=== PATIENT | female | born 1980 | race Caucasian/White ===

== ENCOUNTER 2017-01-06 07:49 | Emergency (ER) | payer OTHER ==
[~2017-01-06] VITALS: Ht 167.6 cm; Wt 86.4 kg
[2017-01-06 08:00] VITALS: BP 122/76
--- NOTE | 2017-01-06 08:06 | NUR ---
Patient ambulated to bed 2 at this time.
--- NOTE | 2017-01-06 08:08 | NUR ---
PATIENT PRESENTS TO ED WITH FALL THIS MORNING. PT STATES SHE FELL AND SLIPPED IN THE SHOWER, ECCHYMOSIS NOTED TO RIGHT SIDE NEAR RIBS. DENIES N/V/D; SKIN IS PINK/WARM/DRY; AAOX4 WITH EVEN AND STEADY GAIT; LUNGS CLEAR BL; HR EVEN AND REGULAR; PT DENIES ANY FEVER, CP, SOB, OR COUGH AT THIS TIME; PATIENT STATES PAIN OF 9/10 AT THIS TIME; VSS; PATIENT POSITIONED FOR COMFORT; HOB ELEVATED; BEDRAILS UP X2; BED DOWN. ER MD MADE AWARE OF PT STATUS.
--- NOTE | 2017-01-06 08:18 | NUR ---
DR. THOMPSON EVALUATING PT AT BEDSIDE.
[2017-01-06] MEDS: ACETAMINOPHEN 325 MG TAB PO ONE (08:29)
--- NOTE | 2017-01-06 08:36 | NUR ---
PT TO RADIOLOGY VIA WHEELCHAIR. TECH PRESENT.
[2017-01-06 09:31] VITALS: BP 123/81
== END 2017-01-06 09:31 | disposition home or self-care (01) ==
LOC: MED 07:49
DX: S20.211A Contusion of right front wall of thorax, initial encounter (principal); K21.9 Gastro-esophageal reflux disease without esophagitis; Z98.51 Tubal ligation status; W18.2XXA Fall in (into) shower or empty bathtub, initial encounter; Y93.89 Activity, other specified; Y92.89 Other specified places as the place of occurrence of the external cause; Y99.8 Other external cause status
CPT/HCPCS: 71101; 99284

== ENCOUNTER 2017-08-19 13:39 | Emergency (ER) | payer OTHER ==
[~2017-08-19] VITALS: Ht 165.1 cm; Wt 93.4 kg
[2017-08-19 13:51] VITALS: BP 119/80
--- NOTE | 2017-08-19 14:00 | NUR ---
37/F BIB c/o left elbow pain radiating to wrist x 3 days---denies injury/trauma, no discoloration noted, +2 brachial/radial pulses <3 sec cap refill, full rom. hx--denies rx---none. surgery tubal ligationDENIES N/V/D; SKIN IS PINK/WARM/DRY; AAOX4 WITH EVEN AND STEADY GAIT; LUNGS CLEAR BL; HR EVEN AND REGULAR; PT DENIES ANY FEVER, CP, SOB, OR COUGH AT THIS TIME; PATIENT STATES PAIN OF `10/10 AT THIS TIME. PATIENT POSITIONED FOR COMFORT; HOB ELEVATED; BEDRAILS UP X2; BED DOWN. ER MD MADE AWARE OF PT STATUS.
[2017-08-19] MEDS ORDERED: LIDOCAINE MPF 1% - **ER/OR** 10 MG/ML VIAL INJ ONE (14:50)
[2017-08-19 16:11] VITALS: BP 114/77
--- NOTE | 2017-08-19 16:11 | NUR ---
Patient discharged with v/s stable. Written and verbal after care instructions given and explained. Patient verbalized understanding. with steady gait. All questions addressed prior to discharge. Advised to follow up with PMD.
== END 2017-08-19 16:11 | disposition home or self-care (01) ==
LOC: MED 13:39
DX: M62.830 Muscle spasm of back (principal); K21.9 Gastro-esophageal reflux disease without esophagitis
CPT/HCPCS: 20552; 99284; J2001

== ENCOUNTER 2017-08-20 09:42 | Emergency (ER) | payer OTHER ==
[~2017-08-20] VITALS: Ht 167.6 cm; Wt 93.0 kg
[2017-08-20 09:48] VITALS: BP 136/100
--- NOTE | 2017-08-20 09:53 | NUR ---
AMBULATES TO BED3
--- NOTE | 2017-08-20 10:02 | NUR ---
37 YO PT C/O SHARP LEFT ARM PAIN RADIATING FROM ELBOW TO HAND 10/10 X 4 DAYS. PT WITH H/O SLIPPED DISK IN NECK AND BACK, STATES SHE THINKS IT MAY BE R/T THAT. DENIES TRUAMA. PT WAS SEEN HERE YESTERDAY FOR SAME THING AND DC'D WITH DX: MUSCLE CRAMPS. PT AAOX4. GCS 15. CMS INTACT. RR EVEN AND UNLABORED. LUNGS BILATERALLY CLEAR. ABD SOFT, NON-TENDER. ER MD RICHEY NOTIFIED. PT NEEDS MET. SAFETY PRECAUTIONS IN PLACE. WILL CONTINUE TO MONITOR.
[2017-08-20] MEDS ORDERED: traMADol 50 MG TAB PO ONE (10:40)
--- NOTE | 2017-08-20 11:00 | NUR ---
PT RESTING IN [facility] AT THIS TIME. VSS. RR EVEN AND UNLABORED. LUNGS CLEAR. SAFETY PRECAUTIONS IN PLACE. WILL CONTINUE TO MONTIOR. PT MEDICATED ABOUT 5 MINUTES AGO, PT UP FOR D/C AFTER OBSERVATION R/T TO [employer].
[2017-08-20 11:23] VITALS: BP 130/98
--- NOTE | 2017-08-20 11:24 | NUR ---
Patient discharged with v/s stable. Written and verbal after care instructions given and explained. Patient alert, oriented and verbalized understanding of instructions. Ambulatory with steady gait. All questions addressed prior to discharge. ID band removed. Patient advised to follow up with PMD. Rx of MEDROL DOSEPAK, TRAMADOL given. Patient educated on indication of medication including possible reaction and side effects. Opportunity to ask questions provided and answered.
== END 2017-08-20 11:24 | disposition home or self-care (01) ==
LOC: MED 09:42
DX: M54.12 Radiculopathy, cervical region (principal); K21.9 Gastro-esophageal reflux disease without esophagitis
CPT/HCPCS: 99283

== ENCOUNTER 2019-03-17 07:46 | Emergency (ER) | payer OTHER ==
[~2019-03-17] VITALS: Ht 167.6 cm; Wt 95.3 kg
[2019-03-17 07:49] VITALS: BP 124/74
--- NOTE | 2019-03-17 07:54 | NUR ---
PT AMB TO BED 8 WITH STEADY GAIT
--- NOTE | 2019-03-17 08:11 | NUR ---
Xray ordered. Patient states that has tubal ligation Urine HCG done and is negative
[2019-03-17 08:41] VITALS: BP 139/85
--- NOTE | 2019-03-17 08:46 | NUR ---
Stable VSS Minimal pain MD has reviewed xrays and Dc'd home To exit
== END 2019-03-17 08:46 | disposition home or self-care (01) ==
LOC: MED 07:46
DX: S93.601A Unspecified sprain of right foot, initial encounter (principal); K21.9 Gastro-esophageal reflux disease without esophagitis; Z98.890 Other specified postprocedural states; W22.8XXA Striking against or struck by other objects, initial encounter; Y93.89 Activity, other specified; Y92.89 Other specified places as the place of occurrence of the external cause; Y99.8 Other external cause status
CPT/HCPCS: 73630; 99283; Q0092

== ENCOUNTER 2020-12-06 08:04 | Emergency (ER) | payer OTHER ==
[~2020-12-06] VITALS: Ht 170.2 cm; Wt 108.2 kg
[2020-12-06 08:10] VITALS: BP 116/88
--- NOTE | 2020-12-06 08:17 | NUR ---
PT AMB TO ER BED 3
--- NOTE | 2020-12-06 08:43 | NUR ---
40 Y/O F BIB SELF FROM HOME, PATIENT PRESENTS TO ED WITH NECK PAIN THAT RADIATES TO SHOULDERS FOR 3 DAYS. PT STATES SHE SLEPT ON HER NECK WRONG 3 DAYS AGO AND HAS BEEN HAVING PAIN SINCE. DENIES VOMITING AND DIARHEA, BUT C/O NAUSEA FROM PAIN BEING SO INTENSE; SKIN IS PINK/WARM/DRY; AAOX4 WITH EVEN AND STEADY GAIT, PT HAS FULL ROM OF NECK AND UPPER EXTREMITIES AT THIS TIME; LUNGS CLEAR BL; HR EVEN AND REGULAR; PT DENIES ANY FEVER, CP, SOB, OR COUGH AT THIS TIME; PATIENT STATES PAIN OF 7/10 AT THIS TIME; VSS; PATIENT POSITIONED FOR COMFORT; HOB ELEVATED; BEDRAILS UP X2; BED DOWN. ER MD MADE AWARE OF PT STATUS. PMH: GASTRITIS MED: IBUPROFEN 800MG (NO RELIEF) NKA
[2020-12-06] MEDS ORDERED: KETOROLAC 30 MG/ML VIAL IM ONE (08:50)
[2020-12-06] MEDS ORDERED: ACET-8386 PO (09:51)
[2020-12-06] MEDS ORDERED: DIAZ5TAB7 PO (09:51)
--- NOTE | 2020-12-06 10:15 | NUR ---
Patient discharged with v/s stable. Written and verbal after care instructions given and explained. Patient alert, oriented and verbalized understanding of instructions. Ambulatory with steady gait. All questions addressed prior to discharge. ID band removed. Patient advised to follow up with PMD. Rx of HYDROCODONE, DIAZEPAM given. Patient educated on indication of medication including possible reaction and side effects. Opportunity to ask questions provided and answered.
[2020-12-06 10:40] VITALS: BP 116/88
== END 2020-12-06 10:15 | disposition home or self-care (01) ==
LOC: MED 08:04
DX: M54.2 Cervicalgia (principal); M62.838 Other muscle spasm; K21.9 Gastro-esophageal reflux disease without esophagitis; Z79.899 Other long term (current) drug therapy
CPT/HCPCS: 96372; 99283; J1885

== ENCOUNTER 2022-12-18 07:35 | Emergency (ER) | payer OTHER ==
[~2022-12-18] VITALS: Ht 167.6 cm; Wt 99.5 kg
[~2022-12-18 07:35] MED LIST: ACET-8905 PO; DIAZ5TAB8 PO
[2022-12-18 07:39] VITALS: BP 127/79; PULSE 81; RESP 20; TEMP 97.8; O2SAT 97
[2022-12-18 07:58] VITALS: BP 127/79; PULSE 81; RESP 20; TEMP 97.8; O2SAT 97
[2022-12-18] MEDS ORDERED: KETOROLAC 60 MG/2 ML VIAL IM ONE (08:05)
[2022-12-18 08:36] LABS: APPEARANCE,URINE CLEAR (CLEAR); BILIRUBIN,URINE NEGATIVE (NEGATIVE); BLOOD, URINE NEGATIVE (NEGATIVE); COLOR,URINE YELLOW (YELLOW); LEUKOCYTE ESTERASE ,URINE NEGATIVE (NEGATIVE); NITRITE, URINE NEGATIVE (NEGATIVE); PROTEIN,URINE NEGATIVE (NEGATIVE); UGLUCOSE 3+ (NEGATIVE); UROBILINOGEN,URINE 0.2 EU/dL (0.2 - 1)
[2022-12-18] MEDS ORDERED: IBUP-2213 PO (08:44)
[2022-12-18] MEDS ORDERED: FLUC150T PO (08:44)
[2022-12-18] MEDS ORDERED: CIPR500T4 PO (08:44)
== END 2022-12-18 09:02 | disposition home or self-care (01) ==
LOC: MED 07:35
DX: R10.30 Lower abdominal pain, unspecified (principal); R30.0 Dysuria; K21.9 Gastro-esophageal reflux disease without esophagitis; Z90.49 Acquired absence of other specified parts of digestive tract; Z98.890 Other specified postprocedural states; Z79.899 Other long term (current) drug therapy
CPT/HCPCS: 81003; 81025; 96372; 99283; J1885